=== PATIENT | female | born 1985 | race Caucasian/White ===

== ENCOUNTER 2019-12-28 05:31 | Emergency (ER) | payer MEDICAID ==
[~2019-12-28] VITALS: Ht 170.2 cm; Wt 72.0 kg
[2019-12-28] MEDS ORDERED: ONDANSETRON HCL 4MG/2ML INJ IV STA (07:25)
[2019-12-28] MEDS ORDERED: MORPHINE SULFATE 4 MG/ML CPJ (NOT FOR IM USE) IV STA (07:25)
[2019-12-28 09:17] LABS: BASOPHILS % 0.4 % (0.0-2.0); EOSINOPHILS % 0.6 % (0.0-5.0); HEMATOCRIT. 39.1 % (36.0-48.0); HEMOGLOBIN. 12.8 g/dL (12.0-16.0); LYMPHOCYTES % 9.2 % (20.0-50.0); MEAN CORPUSCULAR HEMOGLOBIN 27.7 pg (28.0-32.0); MEAN PLATELET VOLUME 10.8 fl (7.4-10.4); MONOCYTES % 5.1 % (2.0-8.0); NEUTROPHILS % 84.7 % (40.0-76.0); PLATELET 197 x1000/uL (130-400); RED CELL DISTRIBUTION WIDTH 14.5 % (11.6-14.6)
[2019-12-28 09:18] LABS: CHLORIDE 108 mEq/L (98-107)
[2019-12-28 09:22] LABS: PROTHROMBIN TIME 10.6 sec (9.6-11.0)
[2019-12-28 09:37] LABS: HCG SCREEN NEGATIVE
[2019-12-28 11:50] VITALS: BP 137/81
== END 2019-12-28 11:55 | disposition home or self-care (01) ==
LOC: ER 05:31
DX: M79.18 Myalgia, other site (principal)
CPT/HCPCS: 36415; 80053; 83690; 84703; 85025; 85610; 96375; 96376; 99285; J2270; J2405